=== PATIENT | male | born 1970 | race Caucasian/White ===

== ENCOUNTER 2019-01-10 13:38 | Emergency (ER) | payer OTHER ==
[~2019-01-10] VITALS: Wt 75.0 kg
--- NOTE | 2019-01-10 17:01 | ERD ---
ER Documentation Chief Complaint Chief Complaint L WRIST PAIN NO DEFORMITY OR TRAUMA. NO SWELLING HPI This is a 48-year-old male who presents with complaint of slow onset of left wrist pain times 3 days. Denies injury, denies spider bite or insect bite, denies any other medical problems. States pain is 7 out of 10 throbbing sensa tion, pain improves with ibuprofen. Limited range of motion at wrist due to pain. No fevers, no malaise. ROS All systems reviewed and are negative except as per history of present illness. Medications Home Meds Active Scripts Naproxen* (Naprosyn*) 500 Mg Tablet, 500 MG PO BID PRN for PAIN AND/OR INFLAMMATION for 10 Days, #20 TAB Prov:MANISH ANDERSON [employer] 01/10/19 Allergies Allergies: Coded Allergies: No Known Allergy (Unverified , 01/10/19) PMhx/Soc Medical and Surgical Hx: pt denies Medical Hx FmHx Family History: No diabetes, No coronary disease, No other Physical Exam Vitals Vital Signs Date Temp Pulse Resp B/P (MAP) Pulse Ox O2 O2 Flow FiO2 Time Delivery Rate 01/10/19 98.2 81 18 119/72 99 Room Air 17:22 (88) 01/10/19 97.8 76 18 125/67 98 13:44 (86) Physical Exam Const: No acute distress Head: Atraumatic Eyes: Normal Conjunctiva ENT: Normal External Ears, Nose and Mouth. Neck: Full range of motion. No meningismus. Resp: Clear to auscultation bilaterally Cardio: Regular rate and rhythm, no murmurs Abd: Soft, non tender, non distended. Normal bowel sounds Skin: No petechiae or rashes Back: No midline or flank tenderness Ext: No cyanosis, or edema. Left forearm: mild swelling, no edema, no bruising, no erythema, no laceration, no deformity, no crepitus. Tenderness over mid radius and at wrist. +pronation/ +supination without pain, ltd rom flexion/extension due to pain, unable to perform phalen due to pain with flexion, neg tinel sign, negative snuff-box tenderness. +csm. Neur: Awake and alert Psych: Normal Mood and Affect Result Diagram: 01/10/19 1550 01/10/19 1550 Results 24 hrs Laboratory Tests Test 3/24/19 15:50 White Blood Count 8.5 10^3/ul Red Blood Count 5.40 10^6/ul Hemoglobin 14.8 g/dl Hematocrit 44.0 % Mean Corpuscular Volume 81.5 fl Mean Corpuscular Hemoglobin 27.4 pg Mean Corpuscular Hemoglobin Concent 33.6 g/dl Red Cell Distribution Width 11.9 % Platelet Count 279 10^3/UL Mean Platelet Volume 9.8 fl Immature Granulocytes % 0.500 % Neutrophils % 59.8 % Lymphocytes % 27.3 % Monocytes % 9.4 % Eosinophils % 2.5 % Basophils % 0.5 % Nucleated Red Blood Cells % 0.0 /100WBC Immature Granulocytes # 0.040 10^3/ul Neutrophils # 5.1 10^3/ul Lymphocytes # 2.3 10^3/ul Monocytes # 0.8 10^3/ul Eosinophils # 0.2 10^3/ul Basophils # 0.0 10^3/ul Nucleated Red Blood Cells # 0.0 10^3/ul Sodium Level 141 mmol/L Potassium Level 4.8 mmol/L Chloride Level 105 mmol/L Carbon Dioxide Level 26 mmol/L Anion Gap 10 Blood Urea Nitrogen 14 mg/dl Creatinine 0.76 mg/dl Est Glomerular Filtrat Rate mL/min > 60 mL/min Glucose Level 89 mg/dl Uric Acid 3.3 mg/dl Calcium Level 9.5 mg/dl Total Bilirubin 0.2 mg/dl Direct Bilirubin 0.00 mg/dl Indirect Bilirubin 0.2 mg/dl Aspartate Amino Transf (AST/SGOT) 25 IU/L Alanine Aminotransferase (ALT/SGPT) 43 IU/L Alkaline Phosphatase 80 IU/L Total Protein 8.3 g/dl Albumin 4.5 g/dl Globulin 3.80 g/dl Albumin/Globulin Ratio 1.18 Procedures/MDM This is a 48-year-old male who presents with left wrist pain. X-ray results Forearm without fracture, mass, avulsion, foreign body, contusion, dislocation Left Hand normal x-ray findings, no fracture, no dislocation, no degenerative changes, no soft tissue swelling. Lab results No leukocytosis, no electrolyte or kidney dysfunction, uric acid normal, liver enzymes normal There is low likelihood that patient signs indicate infectious process, fracture, dislocation, gout, lesion. Patient's forearm wrapped in David wrap with sling provided. Patient provided with naproxen. Patient provided with laboratory and radiological results. Patient instructed to follow-up with primary care provider for further evaluation. Strict ER precautions provided Departure Diagnosis: Primary Impression: Pain in wrist Condition: Stable Patient Instructions: Muscle Strain, Abdomen Comments See depart instructions MANISH ANDERSON NP Jan 10, 2019 17:01
[2019-01-10] MEDS ORDERED: NAPR-985 PO (17:03)
[2019-01-10 17:22] VITALS: BP 119/72; PULSE 81; RESP 18
== END 2019-01-10 17:12 | disposition home or self-care (01) ==
LOC: FTE 13:38
DX: M25.532 Pain in left wrist (principal)
CPT/HCPCS: 73090; 73120; 80053; 84560; 85025; Z7502